=== PATIENT | male | born 1990 | race Caucasian/White ===

== ENCOUNTER 2017-03-26 21:09 | Emergency (ER) | payer OTHER ==
[~2017-03-26] VITALS: Ht 190.5 cm; Wt 106.6 kg
--- NOTE | 2017-03-27 20:29 | EKG ---
[facility] [address] [facility] [place], [place] [address] Signed Sinus tachycardia Otherwise normal ECG No previous ECGs available Confirmed by LUIS GRAF MD ([id number]) on 03/27/2017 8:29:05 PM Electronically Signed By: LUIS GRAF MD 03/27/17 2029 PATIENT NAME: MARGIE CRUZ CHRISTI Electrocardiogram DATE OF : 88 PHYSICIAN: LUIS GRAF MD REPORT #: [id number] REPORT IS CONFIDENTIAL AND NOT TO BE RELEASED WITHOUT AUTHORIZATION
[2017-06-06] MEDS ORDERED: RANITIDINE HCL300 MG PO (15:36)
== END 2017-03-27 01:32 | disposition home or self-care (01) ==
LOC: ED 21:09
DX: R55 Syncope and collapse (principal); R10.9 Unspecified abdominal pain; R00.2 Palpitations; Z88.5 Allergy status to narcotic agent
CPT/HCPCS: 80053; 81001; 83690; 85025; 93005; 93010; 96360; 96361; 99284; J7030

== ENCOUNTER 2017-06-07 07:08 | Day surgery (SDC) | payer OTHER ==
[~2017-06-07] VITALS: Ht 190.5 cm; Wt 107.5 kg
[~2017-06-07 07:08] MED LIST: RANITIDINE HCL300 MG PO
--- NOTE | 2017-06-07 08:59 | NUR ---
06/07/17 0859 [address] 0854 PATIENT ARRIVES TO PACU SLEEPING, AWAKE OFF/ON, RESPONDS APPROPRIATELY TO QUESTIONS, BACK TO SLEEP. RESP EVEN AND UNLABORED, NC AT 3 LITERS.
--- NOTE | 2017-06-07 10:06 | NUR ---
RETURNED TO RM 9 IS TOO SEDATED. ALLOW TO SLEEP LONGER. WATER AND CALL LIGHT GIVEN.
--- NOTE | 2017-06-07 10:27 | NUR ---
HAD EMESIS OF 200MLS THEN 100MLS YELLOWISH FLUID {HAS HAD ORANGE EVY} THEN AMB TO BR AND BACK. STATES HE FEELS A LITTLE BETTER. CHEMO TO DR ALICEA FOR ANTIEMETIC AND ZOFRAN GIVEN. WANTS TO GO HOME CALLED.
--- NOTE | 2017-06-07 10:41 | OR ---
[facility] [address] [place], [place] [address] Signed DATE OF OPERATION: 06/07/2017 SURGEON: Quinn Alicea MD PREOPERATIVE DIAGNOSES: 1. Gastroesophageal reflux disease. 2. Right upper quadrant abdominal pain. POSTOPERATIVE DIAGNOSES: 1. Mild diffuse gastroduodenitis. 2. Small hiatal hernia. 3. Unspecified benign-appearing colonic mass at 42 cm. PROCEDURE: 1. EGD with CLOtest and biopsies of the pylorus, antrum and GE junction. 2. Colonoscopy without biopsy. ESTIMATED BLOOD LOSS: None. INDICATIONS: Margie is a 27-year-old gentleman, who asked to see me for upper and lower endoscopy. He has had acid reflux over the last couple of years and is worried he might have an ulcer. He points to pain more in the right upper quadrant than he does in the epigastrium, although he cannot relate his pain to food. He said he a couple of months ago and had pain, and now it is coming intermittently. He does not associate it with bowel movements. His laboratory work showed a slight elevation in the AST of 49 and ALT of 110, but a normal alkaline phosphatase at 73 and a normal bilirubin at 0.8, and GGT was fine at 33. His viral hepatitis panel was negative. The ceruloplasmin was normal and his sedimentation rate and CRP were also normal. CT scan of abdomen and pelvis was also unremarkable other than a fatty liver. He told me the ultrasound done a few days ago was fine. There is no family history of colon cancer or polyps or inflammatory bowel disease. In the office, I gave him pamphlets on upper and lower endoscopy. We discussed the nature of the 2 tests along with the risks including, but not limited to gas, bloating, crampy abdominal pain, bleeding, perforation, requiring surgery, and missed diagnosis. We also discussed the need for IV conscious sedation. He had expressed understanding and wished to proceed. PROCEDURE: Margie was taken into our endoscopy suite and placed in the supine semi-recumbent Electronically Signed By: QUINN ALICEA MD 06/07/17 1041 PATIENT NAME: MARGIE CRUZ OPERATIVE REPORT DATE OF : [birth year] REPORT #: [id number] PHYSICIAN: QUINN ALICEA MD PCP: BELEN LEWIS NP REPORT IS CONFIDENTIAL AND NOT TO BE RELEASED WITHOUT AUTHORIZATION [facility] [address] [place], [place] [address] Signed position. He was given IV sedation with divided doses of 12 mg of Versed and 200 mcg of fentanyl to cover both cases. The posterior oropharynx was anesthetized with Hurricaine spray. A bite block was utilized for the case. The adult gastroscope was introduced and advanced out into the third portion of the duodenum under direct visualization of camera without difficulty. There was a little bit of irritation in the pyloric channel, so we took a biopsy in that area. No ulcerations in the pyloric channel nor the stomach. Stomach showed some very mild irritation as well. We took a biopsy of the antrum for pathologic review as well as CLOtest. Upon retroflexion of the scope, it was hard to get a good image of his GE junction, but it looks like he just has a small hiatal hernia. No gastric or esophageal varices. We withdrew the scope up through the area of GE junction, which was compliant without stricture. Again, he appears to have a small hiatal hernia. He also has a little disruption to the Z-line with some granulation tissue consistent with acid reflux. It appears that the Zantac is probably not strong enough. No Campos's mucosa, no esophagitis in the distal esophagus, middle esophagus or upper esophagus. After this, the gas was suctioned out, the gastroscope removed. Margie tolerated the procedure quite well. Margie was then rotated into the left lateral decubitus position. He was maintained on IV sedation with Versed and fentanyl. A digital rectal exam was performed and this was unremarkable. The adult colonoscope was introduced and advanced all around into the cecum under direct visualization of the camera without difficulty. His prep was good. The scope was slowly withdrawn. He had an unspecified mass at 42 cm in the colon. It appeared more edematous rather than lipomatous. We thought it could be an inverted tick although he is a little on the young side for that and it is certainly larger than inverted ticks we have seen in the past. We used our narrow band imaging and it had the same color and texture as the rest of the surrounding colon. Again, appears benign. We elected not to biopsy it at this time and certainly not to divide it with our wire loop. The rectum itself was unremarkable. We saw no other diverticula in the sigmoid colon. Upon retroflexion of the scope, there was no pathology above the anal canal. After this, the gas was suctioned out. The colonoscope removed. Margie tolerated the procedure quite well. RECOMMENDATIONS: I will see Margie back in my office in 7 to 14 days to review his results. He might consider moving from an H2 kiarra up to a proton pump inhibitor. If his pain continues, he will need a HIDA scan for the gallbladder. He might consider a repeat colonoscopy over a short interval to re-evaluate this area at 42 cm in the colon. Quinn Alicea MD Electronically Signed By: QUINN ALICEA MD 06/07/17 1041 PATIENT NAME: MARGIE CRUZ OPERATIVE REPORT DATE OF : [birth year] REPORT #: [id number] PHYSICIAN: QUINN ALICEA MD PCP: BELEN LEWIS NP REPORT IS CONFIDENTIAL AND NOT TO BE RELEASED WITHOUT AUTHORIZATION [address] [place], [place] [address] Signed ALB/MODL /[id number] cc: Yumiko Humphrey Dr. Copies: ~ Electronically Signed By: QUINN ALICEA MD 06/07/17 1041 PATIENT NAME: MARGIE CRUZ OPERATIVE REPORT DATE OF : [birth year] REPORT #: [id number] PHYSICIAN: QUINN ALICEA MD PCP: BELEN LEWIS NP REPORT IS CONFIDENTIAL AND NOT TO BE RELEASED WITHOUT AUTHORIZATION
--- NOTE | 2017-06-07 11:04 | NUR ---
LE 1040: DC INSTRUCTIONS GIVEN IN PRESENCE OF SPOUSE AND BOTH VERBALIZE UNDERSTANDING. PT REPORTS HE NEEDS TO REST "A BIT LONGER" PRIOR TO DC. PT IS DRESSED. 1100: SPOUSE ARRIVES AND PT REPORTS HE IS READY TO GO. PT TRANSFERS HIMSELF TO THE AND TOLERATES THAT WELL.
--- NOTE | 2017-06-07 14:30 | NUR ---
PT JUST ARRIVED-ALERT AND ORIENTED. HE WAS OPEN TO MY VISIT, HOPING AND PRAYING ONE OF THE SCOPES WILL GIVE THEM SOME INFO ABOUT HIS PROBLEMS. HE DID NOT ELABORATE, BUT SEEMED INTERESTED I EXPLAINED THE SCHEDULE HE COULD EXPECT. PT REQUESTED PRAYER, WILL FOLLOW NEEDED
== END 2017-06-07 11:00 | disposition home or self-care (01) ==
LOC: OPS 07:08 → DS 07:08 → OPS 08:15 → DS 08:15 → OPS 11:00
PROVIDERS: Colon & Rectal Surgery
PROC: 0DB78ZX Excision of Stomach, Pylorus, Via Natural or Artificial Opening Endoscopic, Diagnostic (ICD-10-PCS; 2017-06-07)
PROC: 0DB48ZX Excision of Esophagogastric Junction, Via Natural or Artificial Opening Endoscopic, Diagnostic (ICD-10-PCS; 2017-06-07)
PROC: 0DJD8ZZ Inspection of Lower Intestinal Tract, Via Natural or Artificial Opening Endoscopic (ICD-10-PCS; principal; 2017-06-07 08:15)
PROC: 0DB98ZX Excision of Duodenum, Via Natural or Artificial Opening Endoscopic, Diagnostic (ICD-10-PCS; 2017-06-07 08:15)
DX: K63.89 Other specified diseases of intestine (principal); K29.50 Unspecified chronic gastritis without bleeding; K29.80 Duodenitis without bleeding; K20.9 Esophagitis, unspecified; K44.9 Diaphragmatic hernia without obstruction or gangrene; F41.9 Anxiety disorder, unspecified; K76.0 Fatty (change of) liver, not elsewhere classified; Z88.5 Allergy status to narcotic agent; Z79.899 Other long term (current) drug therapy
CPT/HCPCS: 86677; 88305; 99153; G0500; J2250; J2405; J3010; J7120

== ENCOUNTER 2017-07-17 06:55 | Day surgery (SDC) | payer OTHER ==
[~2017-07-17] VITALS: Ht 190.5 cm; Wt 107.5 kg
--- NOTE | 2017-07-17 09:20 | NUR ---
07/17/17 0920 [place] 0900-PATIENT ARRIVED TO PACU ON RA O2 SAT 100%. EYES CLOSED REACTIVE TO VOICE. RR EVEN. SR. LEFT HAND DRESSING CDI ELEVATED AND ICE APPLIED. PATIENT REPORTS NUMBNESS TO LEFT HAND.
[2017-07-17] MEDS ORDERED: ULTRAM50 MG PO (09:36)
--- NOTE | 2017-07-17 14:39 | NUR ---
PT RESTING IN BED, ON HIS PHONE-ALERT, ORIENTED AND SUPPORTED BY HIS . HE WAS AT EASE, SEEMED PREPARED, WAITING FOR DR TO COME IN. PT REQUESTED PRAYER, WILL FOLLOW NEEDED
--- NOTE | 2017-07-19 07:13 | OR ---
[facility] [address] [place], [place] [address] Signed DATE OF OPERATION: 07/17/2017 SURGEON: Kar Bedolla MD PREOPERATIVE DIAGNOSIS: Dorsal ganglion, 4th compartment left wrist. POSTOPERATIVE DIAGNOSIS: Dorsal ganglion, 4th compartment left wrist. PROCEDURE: Ganglionectomy. ANESTHESIA: Derick block. COMPLICATIONS: There were no complications. SPECIMENS: The ganglion was sent as a single specimen. WHAT WAS DONE: The patient was taken to the operating room. After anesthesia was induced and airway secured, the patient was positioned prepped and draped in a routine sterile fashion. The ganglion could be palpated over the dorsal aspect of the wrist joint at the level of the interspace between the third and fourth dorsal compartment. A small transverse incision was made directly over the mass. Skin was divided sharply. Subcutaneous tissue was bluntly spread. Blunt dissection was used to nucleate the ganglion cyst, which was then transected at its base and delivered out of the wound as a single fragment. There was a small defect in the dorsal capsule, which was closed with a single suture of 4-0 FiberWire. The wound was then gently irrigated and closed in a standard fashion. A sterile dressing applied. The patient was awakened and taken to the recovery room, where he arrived in stable condition. Counts were correct and antibiotic protocols were followed. Kar Bedolla MD Electronically Signed By: KAR BEDOLLA MD 07/19/17 0713 PATIENT NAME: MARGIE CRUZ OPERATIVE REPORT DATE OF : [birth year] REPORT #: [id number] PHYSICIAN: KAR BEDOLLA MD PCP: BELEN LEWIS INTERNET MARKETING COORDINATOR REPORT IS CONFIDENTIAL AND NOT TO BE RELEASED WITHOUT AUTHORIZATION [address] [place] [address] Signed [facility] /[id number] Copies: ~ Electronically Signed By: KAR BEDOLLA MD 07/19/17 0713 PATIENT NAME: MARGIE CRZU OPERATIVE REPORT DATE OF : [birth year] REPORT #: [id number] PHYSICIAN: KAR BEDOLLA MD PCP: BELEN LEWIS INTERNET MARKETING COORDINATOR REPORT IS CONFIDENTIAL AND NOT TO BE RELEASED WITHOUT AUTHORIZATION
== END 2017-07-17 10:17 | disposition home or self-care (01) ==
LOC: OPS 06:55 → DS 06:55 → OPS 08:00 → DS 08:00 → OPS 10:17
PROVIDERS: Orthopaedic Surgery
PROC: 0LB60ZZ Excision of Left Lower Arm and Wrist Tendon, Open Approach (ICD-10-PCS; principal; 2017-07-17 08:00)
DX: M67.432 Ganglion, left wrist (principal); Z88.5 Allergy status to narcotic agent; Z79.899 Other long term (current) drug therapy
CPT/HCPCS: 01810; 88304; J0131; J0690; J1100; J1885; J2250; J2405; J2704; J2795

== ENCOUNTER 2019-05-20 10:14 | Emergency (ER) | payer OTHER ==
[~2019-05-20] VITALS: Ht 190.5 cm; Wt 107.5 kg
[~2019-05-20 10:14] MED LIST changes: +ULTRAM50 MG PO
[2019-05-20] MEDS ORDERED: OMEPRAZOLE20 MG PO (10:40)
[2019-05-20] MEDS ORDERED: ZOFRAN4 MG PO (12:42)
== END 2019-05-20 13:07 | disposition home or self-care (01) ==
LOC: ED 10:14
DX: R11.2 Nausea with vomiting, unspecified (principal); R19.7 Diarrhea, unspecified; R51 Headache; R10.813 Right lower quadrant abdominal tenderness; Z87.891 Personal history of nicotine dependence; Z88.5 Allergy status to narcotic agent; Z79.899 Other long term (current) drug therapy
CPT/HCPCS: 74177; 80053; 83690; 85025; 96361; 99284-25; J1200; J2765; J7121; Q9967

== ENCOUNTER 2020-03-30 08:06 | Day surgery (SDC) | payer OTHER ==
[~2020-03-30] VITALS: Ht 190.5 cm; Wt 107.7 kg
[~2020-03-30 08:06] MED LIST changes: +FISH OIL 1,0001 EAC2 NG; +IBUPROFEN400 MG PO; +MAGNESIUM400 M1 PO; +OMEPRAZOLE20 MG PO; +VITAMIN D325 MC4 PO; +ZOFRAN4 MG PO
[2020-03-30] MEDS ORDERED: OMEPRAZOLE10 MG PO (08:26)
--- NOTE | 2020-03-30 09:39 | NUR ---
03/30/20 0939 [address] 0937 PATIENT ARRIVES TO PACU RESTING WITH EYES CLOSED. RESP EVEN AND UNLABORED, NC AT 3 LITERS OFF ON ARRIVAL TO PACU.
--- NOTE | 2020-03-30 10:38 | OR ---
[facility] [address] [place], [place] [address] Signed DATE OF OPERATION: 03/30/2020 SURGEON: Quinn Alicea MD PREOPERATIVE DIAGNOSES: 1. Small hiatal hernia. 2. Gastroesophageal reflux disease. POSTOPERATIVE DIAGNOSES: 1. Small hiatal hernia (46-44 cm). 2. Mild diffuse gastritis. PROCEDURES: EGD with CLOtest and biopsies of the antrum. ESTIMATED BLOOD LOSS: None. INDICATIONS: Margie is a 29-year-old gentleman asked to see me for repeat upper endoscopy. He went to an upper endoscopy back in 2018. He is known to have a small hiatal hernia associated with his acid reflux. When he switched from Zantac over to omeprazole, he said his symptoms were much improved. He said the epigastric pain is more or less resolved. He is down to just 10 mg of omeprazole a day and says he does quite well. He has various abdominal complaints, but epigastric pain and acid reflux are his main focus. 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 He said he does not have much of an outlet for any stress. He thinks he is having trouble in the posterior oropharynx at this point. He feels like maybe in the back of his throat. He also talks about his posterior oropharynx can be dry, but he normally has quite a bit of mucus. He has been tested for COVID 3 times in the last several months, it has all been fine. He said he gets stones on his tonsils as well; however, he has never been to any Ear, Nose and Throat surgeon. In the office, I gave him a booklet on upper endoscopy and course, we reviewed that together. He remembers it quite well. I explained to Margie and actually, he is doing quite well. His symptoms are not uncommon despite omeprazole. I reviewed the risks of the upper endoscopy including but not limited to gas bloating, crampy abdominal pain, bleeding, perforation requiring surgery, and missed diagnosis. He understands the need for IV conscious sedation. I have also asked him to consider seeing an Ear, Nose, and Throat surgeon at some point. He had expressed understanding and wished to proceed. Electronically Signed By: QUINN ALICEA MD 03/30/20 1038 PATIENT NAME: MARGIE CRUZ OPERATIVE REPORT DATE OF : 88 REPORT #: [id number] PHYSICIAN: QUINN ALICEA MD PCP: BELEN LEWIS NP REPORT IS CONFIDENTIAL AND NOT TO BE RELEASED WITHOUT AUTHORIZATION [facility] [address] [place], [place] [address] Signed PROCEDURE NOTE: Margie was taken into our endoscopy suite and placed in a supine semi-recumbent position. The posterior oropharynx was anesthetized with lidocaine spray. A bite block was utilized for the case. He was given a total of 8 mg of Versed and 125 mcg of fentanyl to cover the case. The adult gastroscope was introduced and advanced quite readily out into the third portion of the duodenum without difficulty. The duodenum and pyloric channel were completely unremarkable. Again, the stomach showed very mild erythematous changes throughout. We went ahead and took an additional biopsy out of the antrum for pathologic review as well as a biopsy for CLOtest. There were no ulcerations in the pyloric bulb or the stomach. Upon retroflexion of scope, he again has just a small hiatal hernia. It measured out right around 46-44 cm. His Z-line shows very minimal disruption. There was no Campos's mucosa. There was no distal esophagitis. The middle and upper esophagus were quite fine. We spent some time in the posterior oropharynx and the retinoid, vocal cords and the epiglottis all seemed to be fine. I really did get an obvious look at his tonsils, but they do not seem to be particularly swollen. After this, the gas was suctioned out and the gastroscope removed. Margie tolerated his procedure quite well. RECOMMENDATIONS: I will see Margie back in my office in 7 to 14 days to review his results. He could also consider seeing an Ear, Nose, and Throat surgeon at some point if he would like. Quinn Alicea MD ALB/MODL /[id number] cc: JHOAN Martell MD Copies: BELEN LEWIS NP Electronically Signed By: QUINN ALICEA MD 03/30/20 1038 PATIENT NAME: MARGIE CRUZ OPERATIVE REPORT DATE OF : 88 REPORT #: [id number] PHYSICIAN: QUINN ALICEA MD PCP: BELEN LEWIS NP REPORT IS CONFIDENTIAL AND NOT TO BE RELEASED WITHOUT AUTHORIZATION [address] [address] Signed QUINN ALICEA MD ~ Electronically Signed By: QUINN ALICEA MD 03/30/20 1038 PATIENT NAME: MARGIE CRUZ CHRISTI OPERATIVE REPORT DATE OF : [birth year] REPORT #: [id number] PHYSICIAN: QUINN ALICEA MD PCP: BELEN LEWIS NP REPORT IS CONFIDENTIAL AND NOT TO BE RELEASED WITHOUT AUTHORIZATION
--- NOTE | 2020-04-01 17:10 | PATH ---
[facility] [address] [place], [place] [address] Signed SPECIMEN(S): A ANTRUM SPECIMEN(S): B GE JUNCTION SPECIMEN SOURCE: A. ANTRUM B. GE JUNCTION CLINICAL HISTORY: Esophagogastroduodenoscopy. Hiatal hernia; GERD/mild gastritis, small hiatal hernia. MICROSCOPIC DESCRIPTION: Histologic sections of all submitted blocks are examined by light microscopy. These findings, together with the gross examination, support the pathologic diagnosis. FINAL PATHOLOGIC DIAGNOSIS: A. Stomach, antrum, biopsy: - Antral mucosa with chronic, mildly active gastritis. - Negative for Helicobacter organisms with IHC. - Negative for dysplasia or malignancy. B. Gastroesophageal junction, biopsy: - Cardia-oxyntic type mucosa with chronic, inactive gastritis. - Detached superficial squamous epithelium with no histopathologic abnormality. - Negative for intestinal metaplasia, dysplasia, or malignancy. COMMENT: Regarding specimen A: An H. pylori immunohistochemical stain (with appropriately staining controls) is negative for Helicobacter organisms. NAL:cml:C2R GROSS DESCRIPTION: Two specimens are received in two containers, labeled "LB." A. The specimen, labeled "LB, antrum biopsy," is received in formalin and consists of one clayton soft tissue fragment that measures 0.4 cm in greatest dimension. The specimen is entirely submitted in cassette (A1). B. The specimen, labeled "LB, GE junction biopsy," is received in formalin and consists of one clayton soft tissue fragment that measures 0.2 cm in greatest dimension. The specimen is entirely submitted in cassette (B1). PATIENT NAME: MARGIE CRUZ PATHOLOGY DATE OF : [birth year] REPORT #: [id number] PHYSICIAN: RAJAT PEARSON PCP: BELEN LEWIS GENERAL PURCHASING AGENT REPORT IS CONFIDENTIAL AND NOT TO BE RELEASED WITHOUT AUTHORIZATION [facility] [address] [place], [place] [address] Signed JS (under the direct supervision of a pathologist) The Gross Description was prepared using a voice recognition system. The report was reviewed for accuracy; however, sound-alike word errors, addition and/or deletions may occur. If there is any question about this report, please contact Client Services. ADDITIONAL NOTES: Immunohistochemical and/or in situ hybridization studies were performed on this case with the appropriate positive controls that react as expected. This test was developed and its performance characteristics determined by [employer]. It has not been cleared or approved by the U.S. Food and Drug Administration. The FDA has determined that such clearance or approval is not necessary. This test is used for clinical purposes. It should not be regarded as investigational or for research. [employer] is certified under the Clinical Laboratory Improvement Amendments of 1988 (CLIA) as qualified to perform high complexity clinical laboratory testing. PERFORMING LABORATORY: The technical component was performed by [employer], [address] [place] [id number] (Director It: Adrienne Sood MD; CLIA# [id number]). Professional interpretation [facility], [address] [address] (CLIA# [id number]). Diagnostician: Vivian Sepulveda MD Pathologist Electronically Signed 04/01/2020 Copies: ~ PATIENT NAME: MARGIE CRUZ CHRISTI PATHOLOGY DATE OF : [birth year] REPORT #: [id number] PHYSICIAN: RAJAT PATHOLOGY PCP: BELEN LEWIS GENERAL PURCHASING AGENT REPORT IS CONFIDENTIAL AND NOT TO BE RELEASED WITHOUT AUTHORIZATION
== END 2020-03-30 11:10 | disposition home or self-care (01) ==
LOC: DS 08:06 → OPS 08:06 → DS 09:45 → OPS 11:10
PROVIDERS: ATTEND Colon & Rectal Surgery
PROC: 0DB68ZX Excision of Stomach, Via Natural or Artificial Opening Endoscopic, Diagnostic (ICD-10-PCS; 2020-03-30)
PROC: 0DB48ZX Excision of Esophagogastric Junction, Via Natural or Artificial Opening Endoscopic, Diagnostic (ICD-10-PCS; principal; 2020-03-30 09:45)
DX: K44.9 Diaphragmatic hernia without obstruction or gangrene (principal); K21.9 Gastro-esophageal reflux disease without esophagitis; K29.50 Unspecified chronic gastritis without bleeding
CPT/HCPCS: 86677; 88305; 99153; G0500; J2250; J2405; J3010; J7121

== ENCOUNTER 2020-12-08 20:20 | Emergency (ER) | payer OTHER ==
[~2020-12-08] VITALS: Ht 190.5 cm; Wt 107.4 kg
[~2020-12-08 20:20] MED LIST changes: +OMEPRAZOLE10 MG PO
[2020-12-08] MEDS ORDERED: GEMFIBROZIL600 MG PO (20:45)
--- NOTE | 2020-12-09 15:49 | EKG ---
[facility] [address] [facility] [place], [place] [address] Signed Sinus tachycardia Otherwise normal ECG When compared with ECG of 26-MAR-2017 21:59, No significant change was found Confirmed by LUIS GRAF MD ([id number]) on 12/09/2020 3:49:22 PM Electronically Signed By: LUIS GRAF MD 12/09/20 1549 PATIENT NAME: MARGIE CRUZ Electrocardiogram DATE OF : 88 PHYSICIAN: LUIS GRAF MD REPORT #: [id number] REPORT IS CONFIDENTIAL AND NOT TO BE RELEASED WITHOUT AUTHORIZATION
== END 2020-12-09 01:09 | disposition home or self-care (01) ==
LOC: ED 20:20
DX: U07.1 COVID-19 (principal); R00.0 Tachycardia, unspecified; Z87.891 Personal history of nicotine dependence; Z88.5 Allergy status to narcotic agent; Z79.899 Other long term (current) drug therapy
CPT/HCPCS: 71045; 80053; 83735; 84484; 85025; 85379; 93005; 93010; 96374; 99285-25; J2060; J7121; M0243; Q0244; U0003

== ENCOUNTER 2020-12-12 10:22 | Emergency (ER) | payer OTHER ==
[~2020-12-12] VITALS: Ht 190.5 cm; Wt 107.0 kg
[~2020-12-12 10:22] MED LIST changes: +GEMFIBROZIL600 MG PO
--- OUTSIDE RECORDS SUMMARY | 2020-12-12 10:30 | XMS ---
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 [facility] has no Care Guidelines for this patient. [place] V[facility] (12 MO.) [facility] NOTE: Visits indicate total known visits. ED/C VISIT TRACKING (12 MO.) 12/12/2020 10:23 [facility] [place] TYPE: Emergency COMPLAINT: - COVID+, WEAKNESS, COUGH 12/08/2020 20:21 [facility] Lim [place] TYPE: Emergency COMPLAINT: - HIGH HEART RATE,SOB,COUGH INPATIENT VISIT TRACKING (12 MO.) No inpatient visits to display in this time frame [email or web address]
[2020-12-12] MEDS ORDERED: ONDANSETRON ODT4 MG PO (12:57)
== END 2020-12-12 12:55 | disposition home or self-care (01) ==
LOC: ED 10:22
DX: U07.1 COVID-19 (principal); Z87.891 Personal history of nicotine dependence; Z88.5 Allergy status to narcotic agent; Z79.899 Other long term (current) drug therapy
CPT/HCPCS: 71045; 99283-25

== ENCOUNTER 2021-02-19 10:57 | Emergency (ER) | payer OTHER ==
[~2021-02-19] VITALS: Ht 190.5 cm; Wt 107.0 kg
[~2021-02-19 10:57] MED LIST changes: +ONDANSETRON ODT4 MG PO
--- OUTSIDE RECORDS SUMMARY | 2021-02-19 11:04 | XMS ---
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 - Has Care Guidelines CARE PROVIDERS DREA Jensen Traction Power Engineer: Clinical 12/13/2020-Current [facility] \F\ [facility] PHONE: [phone] SARINA LEWIS Nurse Practitioner: Family 12/13/2020-Current PHONE: [phone] [facility] has no Care Guidelines for this patient. Care History Medical/Surgical 12/13/2020 [facility] \T\middot;\T\nbsp; PATIENT IS A -RECEIVES SERVICES THROUGH CT IN [place]. \T\middot;\T\nbsp; Location: [address], [place] [address]- E.D. VISIT COUNT (12 MO.) 3 MACKENZIE Gutierrez TOTAL 3 NOTE: Visits indicate total known visits. 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
[2021-02-19] MEDS ORDERED: DICYCLOMINE HCL10 MG PO (14:13)
== END 2021-02-19 14:28 | disposition home or self-care (01) ==
LOC: ED 10:57
DX: A09 Infectious gastroenteritis and colitis, unspecified (principal); Z87.891 Personal history of nicotine dependence; Z88.5 Allergy status to narcotic agent; Z79.899 Other long term (current) drug therapy
CPT/HCPCS: 80053; 81001; 83690; 83735; 85025; 87493; 96374; 99284-25; J1885; J7030